=== PATIENT | female | born 2000 | race Caucasian/White ===

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

== ENCOUNTER 2018-08-19 11:52 | Observation (INO) | payer MEDICAID ==
[~2018-08-19] VITALS: Ht 154.9 cm; Wt 78.9 kg
== END 2018-08-19 13:45 | disposition home or self-care (01) ==
LOC: L&D 11:52
PROVIDERS: ADMIT Obstetrics & Gynecology; ATTEND Obstetrics & Gynecology
DX: O26.893 Other specified pregnancy related conditions, third trimester (principal); R10.30 Lower abdominal pain, unspecified; O99.343 Other mental disorders complicating pregnancy, third trimester; F41.9 Anxiety disorder, unspecified; F43.9 Reaction to severe stress, unspecified; Z3A.29 29 weeks gestation of pregnancy
CPT/HCPCS: 99281; G0378

== ENCOUNTER 2018-09-07 21:16 | Observation (INO) | payer MEDICAID ==
[~2018-09-07] VITALS: Ht 154.9 cm; Wt 82.6 kg
[2018-09-07] MEDS ORDERED: PNV1TABL50 PO (22:35)
[2018-09-07] MEDS ORDERED: ACETAMINOPHEN 500MG TABLET PO NR (22:45)
== END 2018-09-07 23:25 | disposition home or self-care (01) ==
LOC: 8 EST LDRP 21:16
PROVIDERS: ADMIT Obstetrics & Gynecology; ATTEND Obstetrics & Gynecology
DX: O26.893 Other specified pregnancy related conditions, third trimester (principal); M54.5 Low back pain; Z3A.32 32 weeks gestation of pregnancy
CPT/HCPCS: 99281; G0378

== ENCOUNTER 2018-09-19 02:22 | Observation (INO) | payer OTHER, MEDICAID ==
[~2018-09-19] VITALS: Ht 154.9 cm; Wt 81.6 kg
[~2018-09-19 02:22] MED LIST: PNV1TABL50 PO
[2018-09-19] MEDS ORDERED: ACETAMINOPHEN 500MG TABLET PO NR (03:15)
[2018-09-19] MEDS ORDERED: LACTATED RINGERS 1,000 ML IV SCH (03:15)
[2018-09-19] MEDS ORDERED: ACETAMINOPHEN 650MG/20.3ML UDC PO NR (03:21)
[2018-09-19 03:28] LABS: CLARITY URINE CLOUDY (CLEAR); COLOR URINE YELLOW (YELLOW); KETONES URINE NEGATIVE (NEGATIVE); LEUKOCYTE ESTERASE URINE 3+ (NEGATIVE); NITRITE URINE NEGATIVE (NEGATIVE); OCCULT BLOOD URINE NEGATIVE (NEGATIVE); PH URINE 6.5 (4.5-8.0); PROTEIN URINE NEGATIVE (NEGATIVE); SPECIFIC GRAVITY URINE 1.021 (1.005-1.030); UROBILINOGEN URINE 0.2 E.U./dL (0.2-1.0)
[2018-09-19 03:40] LABS: *AMPHETAMINES SCREEN URINE NEGATIVE (NEGATIVE); *BARBITURATES SCREEN URINE NEGATIVE (NEGATIVE); *BENZODIAZEPINES SCREEN URINE NEGATIVE (NEGATIVE); *COCAINE SCREEN URINE NEGATIVE (NEGATIVE); METHADONE URINE SCREEN NEGATIVE (NEGATIVE); OPIATES URINE SCREEN NEGATIVE (NEGATIVE)
[2018-09-19 03:41] LABS: CANNABINOID URINE SCREEN NEGATIVE (NEGATIVE); PHENCYCLIDINE URINE SCREEN NEGATIVE (NEGATIVE)
[2018-09-19] MEDS ORDERED: CEFAZOLIN 2,000 MG in DEXT 5% WATER 100 ML IV SCH (04:30)
== END 2018-09-19 06:10 | disposition home or self-care (01) ==
LOC: 8 EST LDRP 02:22
PROVIDERS: ADMIT Obstetrics & Gynecology; ATTEND Obstetrics & Gynecology
DX: O26.893 Other specified pregnancy related conditions, third trimester (principal); M54.9 Dorsalgia, unspecified; Z3A.33 33 weeks gestation of pregnancy
CPT/HCPCS: 80305; 81003; 87077; 87086; 96365; G0378; J0690; 96360; 99281; J7060

== ENCOUNTER 2018-10-27 18:06 | Observation (INO) | payer OTHER, MEDICAID ==
[~2018-10-27] VITALS: Ht 154.9 cm; Wt 82.6 kg
== END 2018-10-27 19:46 | disposition home or self-care (01) ==
LOC: 8 EST LDRP 18:06
PROVIDERS: ADMIT Obstetrics & Gynecology; ATTEND Obstetrics & Gynecology
DX: O26.893 Other specified pregnancy related conditions, third trimester (principal); N89.8 Other specified noninflammatory disorders of vagina; Z3A.39 39 weeks gestation of pregnancy
CPT/HCPCS: 99281; G0378

== ENCOUNTER 2018-10-28 11:11 | Observation (INO) | payer OTHER, MEDICAID | END 2018-10-28 15:05 | disposition home or self-care (01) | LOC: 8 EST LDRP 11:11 → MERGE 11:11 | PROVIDERS: ADMIT Obstetrics & Gynecology; ATTEND Obstetrics & Gynecology | DX: O62.9 Abnormality of forces of labor, unspecified (principal); Z3A.39 39 weeks gestation of pregnancy | CPT/HCPCS: 99281; G0378 ==

== ENCOUNTER 2018-10-29 06:07 | Inpatient (IN) | payer MEDICAID ==
[~2018-10-29] VITALS: Ht 154.9 cm; Wt 82.6 kg
[2018-10-29] MEDS ORDERED: DEXT 5%/LR + PITOCIN 20UNITS/L 1,000 ML IV SCH ×2 (06:18→08:52)
[2018-10-29] MEDS ORDERED: BUTORPHANOL TARTRATE 2 MG/ML VIAL IV PRN (06:30)
[2018-10-29] MEDS ORDERED: METHYLERGONOVINE MALEATE 0.2 MG/ML IM PRN ×2 (06:30→09:00)
[2018-10-29] MEDS ORDERED: LIDOCAINE HCL 1% 20ML VIAL (Pyxis) INJ INFIL SCH (06:30)
[2018-10-29] MEDS ORDERED: NALOXONE HCL 0.4 MG/ML 1ML VIAL IM PRN (06:30)
[2018-10-29] MEDS ORDERED: LACTATED RINGERS 1,000 ML IV SCH (06:41)
[2018-10-29 07:08] LABS: BASOPHILS % 0.6 % (0.0-2.0); EOSINOPHILS % 0.3 % (0.0-5.0); HEMATOCRIT. 37.6 % (36.0-48.0); HEMOGLOBIN. 12.1 g/dL (12.0-16.0); LYMPHOCYTES % 17.9 % (20.0-50.0); MEAN CORPUSCULAR HEMOGLOBIN 26.8 pg (28.0-32.0); MEAN CORPUSCULAR VOLUME 83.5 fL (81.0-99.0); MEAN PLATELET VOLUME 9.7 fl (7.4-10.4); MONOCYTES % 5.1 % (2.0-8.0); NEUTROPHILS % 76.1 % (40.0-76.0); PLATELET 309 x1000/uL (130-400)
[2018-10-29 07:12] LABS: PARTIAL THROMBOPLASTIN TIME 24.8 sec (23.4-31.0); PROTHROMBIN TIME 9.9 sec (9.1-11.1)
[2018-10-29 07:44] LABS: HEPATITIS B SURFACE ANTIGEN NEGATIVE
[2018-10-29] MEDS ORDERED: RHO(D) IMMUNE GLOBULIN 300 MCG/SYR IM PRN (09:00)
[2018-10-29] MEDS ORDERED: IBUPROFEN 400MG TABLET PO PRN (09:00)
[2018-10-29] MEDS ORDERED: IBUPROFEN 800MG TABLET PO PRN (09:00)
[2018-10-29] MEDS: PRENATAL VIT/FE FUMARATE/FA TABLET PO SCH (09:00)
[2018-10-29] MEDS ORDERED: LANOLIN OINT 0.25 GM TUBE TOP PRN (09:00)
[2018-10-29 10:15] VITALS: BP 117/78
[2018-10-29 10:45] VITALS: BP 113/60
[2018-10-29 11:02] LABS: CLARITY URINE CLOUDY (CLEAR); COLOR URINE YELLOW (YELLOW); KETONES URINE TRACE (NEGATIVE); LEUKOCYTE ESTERASE URINE NEGATIVE (NEGATIVE); NITRITE URINE NEGATIVE (NEGATIVE); OCCULT BLOOD URINE 3+ (NEGATIVE); PROTEIN URINE 2+ (NEGATIVE); SPECIFIC GRAVITY URINE 1.015 (1.005-1.030); UROBILINOGEN URINE 0.2 E.U./dL (0.2-1.0)
[2018-10-29 11:43] LABS: *AMPHETAMINES SCREEN URINE NEGATIVE (NEGATIVE)
[2018-10-29 11:44] LABS: *BARBITURATES SCREEN URINE NEGATIVE (NEGATIVE); *BENZODIAZEPINES SCREEN URINE NEGATIVE (NEGATIVE); *COCAINE SCREEN URINE NEGATIVE (NEGATIVE); METHADONE URINE SCREEN NEGATIVE (NEGATIVE); OPIATES URINE SCREEN NEGATIVE (NEGATIVE)
[2018-10-29 11:45] LABS: CANNABINOID URINE SCREEN NEGATIVE (NEGATIVE); PHENCYCLIDINE URINE SCREEN NEGATIVE (NEGATIVE)
[2018-10-29 17:00] VITALS: BP 115/73
[2018-10-29 19:30] VITALS: BP 116/74
[2018-10-29 23:22] VITALS: BP 122/77
[2018-10-30 07:54] LABS: BASOPHILS % 0.4 % (0.0-2.0); EOSINOPHILS % 0.2 % (0.0-5.0); HEMATOCRIT. 30.4 % (36.0-48.0); HEMOGLOBIN. 9.7 g/dL (12.0-16.0); MEAN CORPUSCULAR HEMOGLOBIN 26.6 pg (28.0-32.0); MEAN CORPUSCULAR VOLUME 83.2 fL (81.0-99.0); MEAN PLATELET VOLUME 8.8 fl (7.4-10.4); MONOCYTES % 4.9 % (2.0-8.0); NEUTROPHILS % 76.5 % (40.0-76.0); PLATELET 246 x1000/uL (130-400); RED BLOOD CELL COUNT 3.65 mill/uL (4.2-5.4); RED CELL DISTRIBUTION WIDTH 15.3 % (11.6-14.6)
[2018-10-30 08:56] VITALS: BP 107/70
[2018-10-30 17:05] VITALS: BP 124/80
[2018-10-30] MEDS: PRENATAL VIT/FE FUMARATE/FA TABLET PO SCH (17:16)
[2018-10-30 19:30] VITALS: BP 119/64
[2018-10-30 23:47] VITALS: BP 108/65
[2018-10-31] VITALS (7 sets, daily range): BP systolic 103–130; BP diastolic 59–72
[2018-10-31] MEDS: PRENATAL VIT/FE FUMARATE/FA TABLET PO SCH (08:18)
[2018-10-31] MEDS: ACETAMINOPHEN 650MG/20.3ML UDC PO PRN ×2 (11:31→19:47)
[2018-10-31 11:52] LABS: HEMATOCRIT. 29.8 % (36.0-48.0); HEMOGLOBIN. 9.3 g/dL (12.0-16.0); MEAN CORPUSCULAR HEMOGLOBIN 25.9 pg (28.0-32.0); MEAN CORPUSCULAR VOLUME 82.8 fL (81.0-99.0); MEAN PLATELET VOLUME 8.2 fl (7.4-10.4); PLATELET 268 x1000/uL (130-400); RED CELL DISTRIBUTION WIDTH 15.4 % (11.6-14.6)
[2018-10-31 13:44] LABS: PLATELET ESTIMATE NORMAL
[2018-11-01] VITALS: BP 109/71
[2018-11-01 04:00] VITALS: BP 111/74
[2018-11-01 08:30] VITALS: BP 117/71
[2018-11-01 12:56] LABS: HEMATOCRIT 31.2 % (36.0-48.0); HEMOGLOBIN 9.8 g/dL (12.0-16.0); MEAN CORPUSCULAR HEMOGLOBIN 26.4 pg (28.0-32.0); MEAN CORPUSCULAR VOLUME 84.2 fL (81.0-99.0); PLATELET 315 x1000/uL (130-400); RED BLOOD CELL COUNT 3.71 mill/uL (4.2-5.4); RED CELL DISTRIBUTION WIDTH 14.8 % (11.6-14.6)
[2018-11-01 18:12] VITALS: BP 119/67
[2018-11-01 20:05] VITALS: BP 114/68
[2018-11-02 04:00] VITALS: BP 112/63
[2018-11-02 07:53] LABS: BASOPHILS % 0.1 % (0.0-2.0); CHLORIDE 107 mEq/L (98-107); EOSINOPHILS % 2.5 % (0.0-5.0); HEMATOCRIT. 31.8 % (36.0-48.0); HEMOGLOBIN. 9.8 g/dL (12.0-16.0); LYMPHOCYTES % 13.4 % (20.0-50.0); MEAN CORPUSCULAR HEMOGLOBIN 25.9 pg (28.0-32.0); MEAN CORPUSCULAR VOLUME 84.2 fL (81.0-99.0); MEAN PLATELET VOLUME 7.8 fl (7.4-10.4); MONOCYTES % 5.2 % (2.0-8.0); NEUTROPHILS % 78.8 % (40.0-76.0); PLATELET 330 x1000/uL (130-400); RED BLOOD CELL COUNT 3.78 mill/uL (4.2-5.4); RED CELL DISTRIBUTION WIDTH 15.4 % (11.6-14.6)
[2018-11-02 08:00] VITALS: BP 125/62
== END 2018-11-02 15:34 | disposition home or self-care (01) | DRG 560 ==
LOC: 8 EST LDRP 06:07 → OBSVTOIN 06:07 → 8EST 13:12
PROVIDERS: ADMIT Obstetrics & Gynecology; ATTEND Obstetrics & Gynecology
PROC: 10E0XZZ Delivery of Products of Conception, External Approach (ICD-10-PCS; principal; 2018-10-29)
PROC: 0HQ9XZZ Repair Perineum Skin, External Approach (ICD-10-PCS; 2018-10-29)
DX: O13.4 Gestational [pregnancy-induced] hypertension without significant proteinuria, complicating childbirth (principal); D62 Acute posthemorrhagic anemia; O99.12 Other diseases of the blood and blood-forming organs and certain disorders involving the immune mechanism complicating childbirth; D72.829 Elevated white blood cell count, unspecified; Z3A.39 39 weeks gestation of pregnancy; Z37.0 Single live birth; O99.03 Anemia complicating the puerperium; O70.0 First degree perineal laceration during delivery; O90.89 Other complications of the puerperium, not elsewhere classified; R00.0 Tachycardia, unspecified
CPT/HCPCS: 36415; 80305; 83735; 84443; 85027; 86592; 86703; 86762; 86850; 86900; 87340; 93005; 99281; J2590; J3490; J7120

== ENCOUNTER 2019-03-20 04:29 | Emergency (ER) | payer MEDICAID, OTHER ==
[~2019-03-20] VITALS: Ht 154.9 cm; Wt 75.0 kg
[2019-03-20] MEDS ORDERED: ONDANSETRON HCL 4MG/2ML INJ IV STA (05:04)
[2019-03-20] MEDS ORDERED: SODIUM CHLORIDE 0.9% 1,000 ML IV ONE (05:04)
[2019-03-20 05:29] LABS: BASOPHILS % 0.1 % (0.0-2.0); EOSINOPHILS % 0.2 % (0.0-5.0); HEMOGLOBIN. 11.9 g/dL (12.0-16.0); LYMPHOCYTES % 7.7 % (20.0-50.0); MEAN CORPUSCULAR HEMOGLOBIN 26.9 pg (28.0-32.0); MEAN CORPUSCULAR VOLUME 81.5 fL (81.0-99.0); MEAN PLATELET VOLUME 7.8 fl (7.4-10.4); MONOCYTES % 3.9 % (2.0-8.0); NEUTROPHILS % 88.1 % (40.0-76.0); PLATELET 342 x1000/uL (130-400); RED BLOOD CELL COUNT 4.42 mill/uL (4.2-5.4); RED CELL DISTRIBUTION WIDTH 14.7 % (11.6-14.6)
[2019-03-20 05:36] LABS: CHLORIDE 108 mEq/L (98-107); INR 1.1; PROTHROMBIN TIME 11.1 sec (9.6-11.0)
[2019-03-20 05:38] LABS: HCG SCREEN NEGATIVE
[2019-03-20 06:11] LABS: CLARITY URINE TURBID (CLEAR); COLOR URINE ORANGE (YELLOW); KETONES URINE TRACE (NEGATIVE); LEUKOCYTE ESTERASE URINE 1+ (NEGATIVE); NITRITE URINE NEGATIVE (NEGATIVE); OCCULT BLOOD URINE 3+ (NEGATIVE); PH URINE 5.5 (4.5-8.0); PROTEIN URINE 1+ (NEGATIVE); SPECIFIC GRAVITY URINE 1.032 (1.005-1.030); UROBILINOGEN URINE 0.2 E.U./dL (0.2-1.0)
[2019-03-20] MEDS ORDERED: AMOXICILLIN 500 MG CAPSULE PO ONE (07:45)
[2019-03-20] MEDS ORDERED: KETOROLAC 15MG/ML VIAL IV ONE (07:45)
[2019-03-20 09:13] VITALS: BP 98/75
== END 2019-03-20 09:17 | disposition home or self-care (01) ==
LOC: ER 04:52
DX: N39.0 Urinary tract infection, site not specified (principal); K52.9 Noninfective gastroenteritis and colitis, unspecified
CPT/HCPCS: 36415; 80053; 81003; 83690; 84703; 85025; 85610; 96361; 96374; 96375; 99283; J1885; J2405; J7030; Z7610

== ENCOUNTER 2019-07-30 14:47 | Emergency (ER) | payer MEDICAID, OTHER | END 2019-07-30 16:48 | disposition left against medical advice (07) | LOC: ER 14:47 | DX: Z53.21 Procedure and treatment not carried out due to patient leaving prior to being seen by health care provider (principal) ==

== ENCOUNTER 2019-09-09 09:03 | Emergency (ER) | payer MEDICAID ==
[~2019-09-09] VITALS: Ht 154.9 cm; Wt 72.0 kg
[2019-09-09] MEDS ORDERED: SODIUM CHLORIDE 0.9% 1,000 ML IV ONE ×2 (10:57→12:45)
[2019-09-09] MEDS ORDERED: ACETAMINOPHEN 160MG/5ML UDC PO ONE ×2 (11:00→12:45)
[2019-09-09] MEDS ORDERED: ONDANSETRON HCL 4MG/2ML INJ IV ONE (11:00)
[2019-09-09 11:40] LABS: CLARITY URINE CLOUDY (CLEAR); COLOR URINE YELLOW (YELLOW); KETONES URINE 3+ (NEGATIVE); LEUKOCYTE ESTERASE URINE 3+ (NEGATIVE); NITRITE URINE NEGATIVE (NEGATIVE); OCCULT BLOOD URINE NEGATIVE (NEGATIVE); PROTEIN URINE TRACE (NEGATIVE); SPECIFIC GRAVITY URINE 1.021 (1.005-1.030); UROBILINOGEN URINE 0.2 E.U./dL (0.2-1.0)
[2019-09-09 11:40] LABS: CHLORIDE 105 mEq/L (98-107)
[2019-09-09 11:44] LABS: BASOPHILS % 0.4 % (0.0-2.0); EOSINOPHILS % 0.1 % (0.0-5.0); HEMATOCRIT. 35.8 % (36.0-48.0); HEMOGLOBIN. 11.7 g/dL (12.0-16.0); MEAN CORPUSCULAR HEMOGLOBIN 28.9 pg (28.0-32.0); MEAN PLATELET VOLUME 8.7 fl (7.4-10.4); MONOCYTES % 6.3 % (2.0-8.0); NEUTROPHILS % 85.2 % (40.0-76.0); PLATELET 288 x1000/uL (130-400); RED BLOOD CELL COUNT 4.07 mill/uL (4.2-5.4); RED CELL DISTRIBUTION WIDTH 15.2 % (11.6-14.6)
[2019-09-09 12:04] LABS: B-HCG QUANTITATIVE 37726 mIU/mL (<3)
[2019-09-09] MEDS ORDERED: OSELTAMIVIR 75MG CAPSULE PO ONE (12:45)
[2019-09-09] MEDS ORDERED: CEFTRIAXONE 1 G PREMIX 50 ML IV ONE (12:45)
[2019-09-09 14:10] VITALS: BP 106/70
== END 2019-09-09 14:42 | disposition home or self-care (01) ==
LOC: ER 09:03
DX: O26.892 Other specified pregnancy related conditions, second trimester (principal); J10.1 Influenza due to other identified influenza virus with other respiratory manifestations; O23.42 Unspecified infection of urinary tract in pregnancy, second trimester; Z3A.15 15 weeks gestation of pregnancy
CPT/HCPCS: 36415; 80053; 81003; 81025; 84702; 85025; 87086; 87430; 87804; 93005; 96365; 96375; 99284; J0696; J2405; J7030

== ENCOUNTER 2019-11-05 15:58 | Emergency (ER) | payer MEDICAID ==
[~2019-11-05] VITALS: Ht 154.9 cm; Wt 77.3 kg
[2019-11-05] MEDS ORDERED: ACETAMINOPHEN 325MG TABLET PO ONE (20:30)
[2019-11-05 22:38] LABS: CLARITY URINE CLEAR (CLEAR); COLOR URINE YELLOW (YELLOW); KETONES URINE 2+ (NEGATIVE); LEUKOCYTE ESTERASE URINE NEGATIVE (NEGATIVE); NITRITE URINE NEGATIVE (NEGATIVE); OCCULT BLOOD URINE NEGATIVE (NEGATIVE); PH URINE 6.5 (4.5-8.0); PROTEIN URINE NEGATIVE (NEGATIVE); SPECIFIC GRAVITY URINE 1.026 (1.005-1.030)
[2019-11-05 23:30] VITALS: BP 132/80
== END 2019-11-05 23:30 | disposition home or self-care (01) ==
LOC: ER 20:02
DX: O26.892 Other specified pregnancy related conditions, second trimester (principal); J10.1 Influenza due to other identified influenza virus with other respiratory manifestations; Z3A.24 24 weeks gestation of pregnancy
CPT/HCPCS: 81003; 87804; 99283

== ENCOUNTER 2019-12-07 00:50 | Emergency (ER) | payer MEDICAID ==
[~2019-12-07] VITALS: Ht 162.6 cm; Wt 74.0 kg
[2019-12-07 00:55] VITALS: BP 126/76
[2019-12-07] MEDS ORDERED: ACETAMINOPHEN 500MG TABLET PO ONE (01:15)
[2019-12-07 01:19] LABS: CLARITY URINE CLEAR (CLEAR); COLOR URINE YELLOW (YELLOW); KETONES URINE NEGATIVE (NEGATIVE); LEUKOCYTE ESTERASE URINE 2+ (NEGATIVE); NITRITE URINE NEGATIVE (NEGATIVE); OCCULT BLOOD URINE NEGATIVE (NEGATIVE); PH URINE 6.5 (4.5-8.0); PROTEIN URINE NEGATIVE (NEGATIVE); SPECIFIC GRAVITY URINE 1.019 (1.005-1.030); UROBILINOGEN URINE 0.2 E.U./dL (0.2-1.0)
[2019-12-07] MEDS ORDERED: ACETAMINOPHEN 650MG/20.3ML UDC PO ONE (01:45)
== END 2019-12-07 02:37 | disposition home or self-care (01) ==
LOC: ER 01:04
DX: O26.892 Other specified pregnancy related conditions, second trimester (principal); M54.5 Low back pain; Z3A.28 28 weeks gestation of pregnancy
CPT/HCPCS: 81003; 81025; 99283

== ENCOUNTER 2020-02-22 20:59 | Inpatient (IN) | payer MEDICAID ==
[~2020-02-22] VITALS: Ht 154.9 cm; Wt 85.3 kg
[2020-02-22] MEDS ORDERED: DEXT 5%/LR + PITOCIN 20UNITS/L 1,000 ML IV SCH ×2 (22:04→23:27)
[2020-02-22] MEDS ORDERED: LACTATED RINGERS 1,000 ML IV SCH (22:04)
[2020-02-22] MEDS ORDERED: BUTORPHANOL TARTRATE 2 MG/ML VIAL IV PRN (22:15)
[2020-02-22] MEDS ORDERED: LIDOCAINE HCL 1% 20ML VIAL (Pyxis) INJ INFIL SCH (22:15)
[2020-02-22] MEDS ORDERED: RHO(D) IMMUNE GLOBULIN 300 MCG/SYR IM NR (22:15)
[2020-02-22] MEDS ORDERED: METHYLERGONOVINE MALEATE 0.2 MG/ML IM PRN ×2 (22:15→23:30)
[2020-02-22] MEDS ORDERED: NALOXONE HCL 0.4 MG/ML 1ML VIAL IM PRN (22:15)
[2020-02-22] MEDS ORDERED: FERR325T6 PO (22:34)
[2020-02-22 22:37] LABS: BASOPHILS % 0.5 % (0.0-2.0); EOSINOPHILS % 0.3 % (0.0-5.0); HEMATOCRIT. 31.8 % (36.0-48.0); HEMOGLOBIN. 10.5 g/dL (12.0-16.0); LYMPHOCYTES % 21.8 % (20.0-50.0); MEAN CORPUSCULAR HEMOGLOBIN 26.6 pg (28.0-32.0); MEAN CORPUSCULAR VOLUME 80.2 fL (81.0-99.0); MEAN PLATELET VOLUME 8.5 fl (7.4-10.4); MONOCYTES % 6.8 % (2.0-8.0); NEUTROPHILS % 70.6 % (40.0-76.0); PLATELET 368 x1000/uL (130-400); RED BLOOD CELL COUNT 3.96 mill/uL (4.2-5.4); RED CELL DISTRIBUTION WIDTH 15.4 % (11.6-14.6)
[2020-02-22 22:45] LABS: INR 0.9; PARTIAL THROMBOPLASTIN TIME 26.6 sec (23.4-31.0); PROTHROMBIN TIME 10.2 sec (9.6-11.0)
[2020-02-22 22:48] LABS: CLARITY URINE CLEAR (CLEAR); COLOR URINE YELLOW (YELLOW); KETONES URINE NEGATIVE (NEGATIVE); LEUKOCYTE ESTERASE URINE NEGATIVE (NEGATIVE); NITRITE URINE NEGATIVE (NEGATIVE); OCCULT BLOOD URINE NEGATIVE (NEGATIVE); PROTEIN URINE NEGATIVE (NEGATIVE); SPECIFIC GRAVITY URINE 1.021 (1.005-1.030)
[2020-02-22] MEDS ORDERED: MINERAL OIL 30ML BOTTLE PO ONE (23:00)
[2020-02-22 23:20] LABS: *AMPHETAMINES SCREEN URINE NEGATIVE (NEGATIVE); *BARBITURATES SCREEN URINE NEGATIVE (NEGATIVE); *COCAINE SCREEN URINE NEGATIVE (NEGATIVE); METHADONE URINE SCREEN NEGATIVE (NEGATIVE); OPIATES URINE SCREEN NEGATIVE (NEGATIVE)
[2020-02-22 23:21] LABS: CANNABINOID URINE SCREEN NEGATIVE (NEGATIVE); PHENCYCLIDINE URINE SCREEN NEGATIVE (NEGATIVE)
[2020-02-22 23:29] LABS: *BENZODIAZEPINES SCREEN URINE NEGATIVE (NEGATIVE)
[2020-02-22] MEDS ORDERED: IBUPROFEN 800MG TABLET PO PRN (23:30)
[2020-02-22] MEDS ORDERED: IBUPROFEN 400MG TABLET PO PRN (23:30)
[2020-02-22] MEDS ORDERED: RHO(D) IMMUNE GLOBULIN 300 MCG/SYR IM PRN (23:30)
[2020-02-22 23:35] LABS: HEPATITIS B SURFACE ANTIGEN NEGATIVE
[2020-02-23 01:30] VITALS: BP 116/63
[2020-02-23 04:00] VITALS: BP 119/62
[2020-02-23 05:09] LABS: BASOPHILS % 0.2 % (0.0-2.0); HEMATOCRIT. 31.5 % (36.0-48.0); HEMOGLOBIN. 10.2 g/dL (12.0-16.0); LYMPHOCYTES % 11.5 % (20.0-50.0); MEAN CORPUSCULAR VOLUME 80.4 fL (81.0-99.0); MEAN PLATELET VOLUME 8.7 fl (7.4-10.4); MONOCYTES % 4.7 % (2.0-8.0); NEUTROPHILS % 83.6 % (40.0-76.0); PLATELET 292 x1000/uL (130-400); RED BLOOD CELL COUNT 3.92 mill/uL (4.2-5.4); RED CELL DISTRIBUTION WIDTH 15.4 % (11.6-14.6)
[2020-02-23 08:00] VITALS: BP 112/59
[2020-02-23] MEDS: LANOLIN OINT 7GM TUBE TOP PRN ×2 (08:34→20:00)
[2020-02-23] MEDS ORDERED: PRENATAL VIT/FE FUMARATE/FA TABLET PO SCH (09:00)
[2020-02-23 16:00] VITALS: BP 117/62
[2020-02-23 19:30] VITALS: BP 111/64
[2020-02-24] VITALS: BP 112/67
[2020-02-24 04:00] VITALS: BP 109/69
[2020-02-24] MEDS ORDERED: IBUP-2030 PO (04:15)
[2020-02-24 09:01] VITALS: BP 119/73
== END 2020-02-24 12:45 | disposition home or self-care (01) | DRG 560 ==
LOC: INTOOBSV 20:59 → 8EST 20:59 → OBSVTOIN 20:59 → 8 EST LDRP 21:53 → 8EST 02-23 01:15
PROVIDERS: ADMIT Obstetrics & Gynecology; ATTEND Obstetrics & Gynecology
PROC: 10E0XZZ Delivery of Products of Conception, External Approach (ICD-10-PCS; principal; 2020-02-22)
DX: O21.0 Mild hyperemesis gravidarum (principal); D62 Acute posthemorrhagic anemia; O99.02 Anemia complicating childbirth; Z3A.39 39 weeks gestation of pregnancy; Z37.0 Single live birth
CPT/HCPCS: 36415; 80305; 81003; 85025; 86592; 86703; 86762; 86850; 86900; 87340; 99281; G0378; J2590

== ENCOUNTER 2020-02-25 20:48 | Emergency (ER) | payer MEDICAID ==
[~2020-02-25] VITALS: Ht 154.9 cm; Wt 77.0 kg
[~2020-02-25 20:48] MED LIST changes: +FERR325T6 PO; +IBUP-2030 PO
[2020-02-25] MEDS ORDERED: SODIUM CHLORIDE 0.9% 1,000 ML IV ONE (21:25)
[2020-02-25] MEDS ORDERED: ACETAMINOPHEN 325MG TABLET PO PRN (21:30)
[2020-02-25] MEDS ORDERED: ONDANSETRON HCL 4MG/2ML INJ IV ONE (21:30)
[2020-02-25 21:59] LABS: BASOPHILS % 0.4 % (0.0-2.0); EOSINOPHILS % 0.6 % (0.0-5.0); HEMATOCRIT. 30.4 % (36.0-48.0); HEMOGLOBIN. 9.7 g/dL (12.0-16.0); LYMPHOCYTES % 7.6 % (20.0-50.0); MEAN CORPUSCULAR HEMOGLOBIN 25.9 pg (28.0-32.0); MEAN CORPUSCULAR VOLUME 80.9 fL (81.0-99.0); MEAN PLATELET VOLUME 8.1 fl (7.4-10.4); MONOCYTES % 4.4 % (2.0-8.0); PLATELET 326 x1000/uL (130-400); RED BLOOD CELL COUNT 3.75 mill/uL (4.2-5.4); RED CELL DISTRIBUTION WIDTH 15.9 % (11.6-14.6)
[2020-02-25 22:07] LABS: CHLORIDE 109 mEq/L (98-107)
[2020-02-25 22:09] LABS: INR 0.9; PROTHROMBIN TIME 10.2 sec (9.6-11.0)
[2020-02-25 23:05] LABS: CLARITY URINE CLOUDY (CLEAR); COLOR URINE ORANGE (YELLOW); KETONES URINE NEGATIVE (NEGATIVE); LEUKOCYTE ESTERASE URINE 3+ (NEGATIVE); NITRITE URINE NEGATIVE (NEGATIVE); OCCULT BLOOD URINE 3+ (NEGATIVE); PROTEIN URINE 2+ (NEGATIVE); SPECIFIC GRAVITY URINE 1.025 (1.005-1.030)
[2020-02-26] MEDS ORDERED: LIDOCAINE HCL 1% 20ML VIAL (Pyxis) INJ INFIL ONE (01:00)
[2020-02-26] MEDS ORDERED: CEFTRIAXONE SODIUM 1 G/VIAL IM ONE (01:00)
[2020-02-26 01:35] VITALS: BP 117/82
[2020-02-26] MEDS ORDERED: CEFTRIAXONE 1 G PREMIX 50 ML IV ONE (01:45)
== END 2020-02-26 01:57 | disposition home or self-care (01) ==
LOC: ER 20:48
DX: N39.0 Urinary tract infection, site not specified (principal); K80.20 Calculus of gallbladder without cholecystitis without obstruction
CPT/HCPCS: 36415; 71045; 76705; 76830; 76856; 80053; 81003; 83690; 85025; 85610; 87086; 96372; 96374; 99285; J0696; J2405; J3490; J7030

== ENCOUNTER 2020-09-17 16:13 | Emergency (ER) | payer MEDICAID ==
[~2020-09-17] VITALS: Ht 154.9 cm; Wt 76.6 kg
[2020-09-17 19:18] VITALS: BP 112/78
== END 2020-09-17 19:19 | disposition home or self-care (01) ==
LOC: ER 16:13
DX: M79.18 Myalgia, other site (principal); R05 Cough; R06.02 Shortness of breath; Z20.828 Contact with and (suspected) exposure to other viral communicable diseases
CPT/HCPCS: 71045; 99284; C9803; U0003

== ENCOUNTER 2021-05-03 15:37 | Emergency (ER) | payer MEDICAID ==
[~2021-05-03] VITALS: Ht 154.9 cm; Wt 70.0 kg
[2021-05-03] MEDS ORDERED: VISCOUS LIDOCAINE 2% 15 ML UDC PO STA (19:07)
[2021-05-03] MEDS ORDERED: ACETAMINOPHEN 325MG TABLET PO STA (19:07)
[2021-05-03] MEDS ORDERED: MAGNESIUM/ALUMINUM HYDROXIDE/SIMETHICONE 30ML UDC PO STA (19:07)
[2021-05-03] MEDS ORDERED: ONDANSETRON 4MG ODT PO STA (19:07)
[2021-05-03 21:08] LABS: CLARITY URINE CLEAR (CLEAR); COLOR URINE YELLOW (YELLOW); KETONES URINE 1+ (NEGATIVE); LEUKOCYTE ESTERASE URINE NEGATIVE (NEGATIVE); NITRITE URINE NEGATIVE (NEGATIVE); OCCULT BLOOD URINE NEGATIVE (NEGATIVE); PROTEIN URINE NEGATIVE (NEGATIVE); SPECIFIC GRAVITY URINE 1.027 (1.005-1.030)
[2021-05-03 22:54] LABS: BASOPHILS % 0.2 % (0.0-2.0); EOSINOPHILS % 0.6 % (0.0-5.0); HEMOGLOBIN. 12.3 g/dL (12.0-16.0); LYMPHOCYTES % 21.7 % (20.0-50.0); MEAN CORPUSCULAR HEMOGLOBIN 28.7 pg (28.0-32.0); MEAN CORPUSCULAR VOLUME 84.3 fL (81.0-99.0); MEAN PLATELET VOLUME 7.9 fl (7.4-10.4); MONOCYTES % 7.2 % (2.0-8.0); NEUTROPHILS % 70.3 % (40.0-76.0); PLATELET 308 x1000/uL (130-400); RED BLOOD CELL COUNT 4.27 mill/uL (4.2-5.4); RED CELL DISTRIBUTION WIDTH 13.8 % (11.6-14.6)
[2021-05-03 23:00] LABS: CHLORIDE 105 mEq/L (98-107)
[2021-05-03 23:02] LABS: HCG SCREEN NEGATIVE
[2021-05-03] MEDS ORDERED: PROT40 PO (23:35)
[2021-05-03] MEDS ORDERED: ONDA4TAB5 MT (23:35)
[2021-05-04 00:37] VITALS: BP 129/77
== END 2021-05-04 00:40 | disposition home or self-care (01) ==
LOC: ER 15:37
DX: R51.9 Headache, unspecified (principal); R10.13 Epigastric pain
CPT/HCPCS: 36415; 80053; 81003; 83690; 84703; 85025; 99284; Q0162

== ENCOUNTER 2021-09-20 16:47 | Emergency (ER) | payer MEDICAID ==
[~2021-09-20] VITALS: Ht 154.9 cm; Wt 77.0 kg
[~2021-09-20 16:47] MED LIST changes: +ONDA4TAB5 MT; +PROT40 PO
[2021-09-20] MEDS ORDERED: ACETAMINOPHEN 325MG TABLET PO ONE (17:45)
[2021-09-20] MEDS ORDERED: IBUP-2458 MT (18:10)
[2021-09-20] MEDS ORDERED: AMOX-494 MT (18:12)
[2021-09-20] MEDS ORDERED: ACET-2081 MT (18:14)
[2021-09-20] MEDS ORDERED: ACETAMINOPHEN 160 MG/5 ML UD CUP PO ONE (18:15)
[2021-09-20] MEDS ORDERED: IBUPROFEN 100MG/5ML UDC PO ONE (18:15)
[2021-09-20] MEDS ORDERED: DEXAMETHASONE 10 MG/ML VIAL PO ONE (18:15)
[2021-09-20] MEDS ORDERED: ACETAMINOPHEN 650MG/20.3ML UDC PO NR (18:25)
[2021-09-20 19:30] VITALS: BP 120/81
== END 2021-09-20 19:30 | disposition home or self-care (01) ==
LOC: ER 16:47
DX: J02.0 Streptococcal pharyngitis (principal); R03.0 Elevated blood-pressure reading, without diagnosis of hypertension
CPT/HCPCS: 99284; J1100